=== PATIENT | male | born 1950 | race Caucasian/White ===

== ENCOUNTER → 2022-02-25 14:06 | Outpatient (BNVA) | payer MEDICARE, OTHER, SELFPAY | PROVIDERS: Family Provider Family Medicine; PCP Family Medicine; Visit Provider Nurse Practitioner Family | DX: B34.9 Viral infection, unspecified (principal) | CPT/HCPCS: 87400 ==

== ENCOUNTER → 2022-03-12 12:16 | Outpatient (BNVA) | payer MEDICARE, OTHER, SELFPAY | PROVIDERS: Family Provider Family Medicine; PCP Family Medicine; Visit Provider Emergency Medicine | DX: R68.89 Other general symptoms and signs (principal); B34.9 Viral infection, unspecified | CPT/HCPCS: 87400 ==

== ENCOUNTER 2022-04-22 15:12 | Outpatient (CLI) | payer OTHER, SELFPAY ==
--- NOTE | 2022-04-22 15:22 | USCV_ITS ---
Alton Mack Age: 72 Gender: M : 1950 Exam Date: 04/22/2022 15:27 Ordering Phys: Neena Severino MD Technologist: CT Exam Location: [facility] – [place] Indication: aaa screening HISTORY: Diameter (cm) AP x Transverse x Length Velocity (cm/s) Waveform Prox Aorta: 2.75 x 2.50 x 63.60 Mid Aorta: 1.86 x 2.16 x 138.60 Distal Aorta: 1.99 x 1.61 x 113.90 Right Iliac Prox: 1.20 x 1.27 x 133.20 Left Iliac Prox: 1.34 x 1.42 x 147.20 Stent Prox Landing x x Aneurysmal Sac Max x x Lt Lat Sac Dim Rt Lat Sac Dim Stent Dist Landing x x Right Iliac Stent x x Left Iliac Stent x x Right Renal Art Left Renal Art FINDINGS: Comparison: none available. Ectatic abdominal aorta with evidence of atherosclerotic plaque noted. No evidence of abdominal aortic aneurysm. There is no evidence of right common iliac artery stenosis. There is no evidence of left common iliac artery stenosis. CONCLUSIONS No evidence of abdominal aortic or bilateral iliac aneurysm. Dr. Sally Acevedo DO (Electronically Signed) Final Date: 22 April 2022 15:56 S
== END 2022-04-22 15:13 | disposition home or self-care (01) ==
LOC: RAD 15:12
PROVIDERS: PCP Family Medicine; Visit Provider Family Medicine
DX: Z01.89 Encounter for other specified special examinations (principal)
CPT/HCPCS: 76706